=== PATIENT | male | born 2005 | race Hispanic/Latino ===

== ENCOUNTER 2024-05-11 21:20 | Emergency (ER) | payer SELFPAY ==
[~2024-05-11] VITALS: Ht 180.3 cm; Wt 102.1 kg
[2024-05-11 21:36] VITALS: PULSE 105; RESP 18; TEMP 98.5; O2SAT 96
[2024-05-11] MEDS: LIDOCAINE HCL 1% LOCAL INJ 20 ML VIAL INJ ONE (21:51)
[2024-05-11] MEDS ORDERED: AMOX TR-K CLV1 EAC2 PO (22:13)
== END 2024-05-11 22:20 | disposition home or self-care (01) ==
LOC: FSED 21:35
DX: S01.511A Laceration without foreign body of lip, initial encounter (principal); W50.0XXA Accidental hit or strike by another person, initial encounter; Y93.67 Activity, basketball
CPT/HCPCS: 12011; 99282; J2001